=== PATIENT | female | born 1955 | race Caucasian/White ===

== ENCOUNTER 2020-09-13 06:01 | Emergency (ER) | payer MEDICARE, BC ==
[~2020-09-13] VITALS: Ht 177.8 cm; Wt 86.2 kg
[2020-09-13] MEDS ORDERED: HYDROCODON-ACE1 EAC7 PO (08:15)
[2020-09-13 08:27] VITALS: BP 130/73
== END 2020-09-13 08:29 | disposition home or self-care (01) ==
LOC: M.ERS 06:01
DX: S42.291A Other displaced fracture of upper end of right humerus, initial encounter for closed fracture (principal); Z88.0 Allergy status to penicillin; W18.39XA Other fall on same level, initial encounter; Y93.89 Activity, other specified; Y92.096 Garden or yard of other non-institutional residence as the place of occurrence of the external cause; Y99.8 Other external cause status